=== PATIENT | female | born 1945 | race Caucasian/White ===

== ENCOUNTER → 2016-05-14 | Outpatient (CLI) | payer MEDICARE ==
[~2016-05-14] MED LIST: BACTRIM DS 8001 TA1 PO; CARAFATE1 GM PO; CEPHALEXIN500 M1 PO; FAMCICLOVIR500 MG PO; GLIPIZIDE2.5 MG PO; KEFLEX500 MG PO; LISINOPRIL/HCTZ1 TA3 PO; METFORMIN1000 MG PO; NORCO 5-325 TA1 EACH PO; PRILOSEC20 MG PO; SIMVASTATIN40 MG PO; VICODIN1 TAB PO
== END | disposition home or self-care (01) ==
LOC: MAMMO 10:43
DX: Z12.31 Encounter for screening mammogram for malignant neoplasm of breast (principal)

== ENCOUNTER → 2016-07-10 | Outpatient (CLI) | payer MEDICARE | END | disposition home or self-care (01) | LOC: MAMMO 09:24 | DX: R92.8 Other abnormal and inconclusive findings on diagnostic imaging of breast (principal) ==

== ENCOUNTER 2017-09-01 10:44 | Emergency (ER) | payer MEDICARE ==
[~2017-09-01] VITALS: Ht 152.4 cm; Wt 55.3 kg
[2017-09-01 11:47] LABS: BASO % 0.5 % (0.0-1.0); EOS # 0.6 10*3/uL (0.0-0.4); EOS % 6.6 % (1.0-4.0); HEMATOCRIT 31.8 % (37.0-47.0); HEMOGLOBIN 9.8 g/dl (12.0-16.0); LYMPH # 1.2 10*3/uL (1.3-4.4); LYMPH % 14.5 % (27.0-41.0); MEAN CELL VOLUME 89.6 fl (81.0-99.0); MEAN CORPUSCULAR HGB 27.6 pg (27.0-31.0); MEAN CORPUSCULAR HGB CONC 30.8 g/dl (33.0-37.0); MEAN PLATELET VOLUME 11.2 fl (9.6-12.3); MONO # 0.6 10*3/uL (0.1-1.0); MONO % 6.5 % (3.0-9.0); NEUT % 71.3 % (47.0-73.0); PLATELET COUNT AUTOMATED 169 10*3/uL (130-400); RED BLOOD COUNT 3.55 10*6/uL (4.10-5.10); RED CELL DISTRI WIDTH 15.5 % (0-14.5); WHITE BLOOD COUNT 8.4 10*3/uL (4.8-10.8)
[2017-09-01 11:55] LABS: ACT PARTIAL THROMBO TIME 24.7 SECONDS (20.8-31.5)
[2017-09-01 12:04] LABS: ALBUMIN 3.7 gm/dl (3.1-4.5); BUN 23 mg/dl (7-24); CHLORIDE 107 mmol/L (98-107); LIPASE 174 U/L (73-393); SGOT/AST 14 IU/L (3-35); SGPT/ALT 20 U/L (12-78); SODIUM 141 mmol/L (136-145)
[2017-09-01 12:05] LABS: ALKALINE PHOSPHATASE 43 U/L (45-117); TROPONIN I < 0.015 ng/ml (<0.045)
[2017-09-01 12:09] LABS: BILIRUBIN NEGATIVE (NEGATIVE); BLOOD NEGATIVE (NEGATIVE); CLARITY CLEAR (CLEAR); COLOR YELLOW (YELLOW); GLUCOSE NEGATIVE (NEGATIVE); KETONE NEGATIVE (NEGATIVE); LEUKO ESTERASE TRACE (NEGATIVE); NITRITE NEGATIVE (NEGATIVE); UROBILINOGEN 0.2 E.U./dl (0.2-1.0)
[2017-09-01 12:20] LABS: BACTERIA 1+; MUCOUS 1+
[2017-09-01] MEDS ORDERED: PREDNISONE50 MG PO (14:15)
[2017-09-01] MEDS ORDERED: NORCO 5-325 TA1 EACH PO (14:15)
[2017-09-01 14:16] VITALS: BP 130/82
== END 2017-09-01 15:33 | disposition home or self-care (01) ==
LOC: ED 10:44
PROVIDERS: Emergency Medicine
DX: M10.9 Gout, unspecified (principal); M79.674 Pain in right toe(s); Z90.710 Acquired absence of both cervix and uterus; Z90.89 Acquired absence of other organs; Z98.890 Other specified postprocedural states; Z79.899 Other long term (current) drug therapy; Z88.0 Allergy status to penicillin; Z88.2 Allergy status to sulfonamides

== ENCOUNTER → 2017-09-04 | Outpatient (CLI) | payer MEDICARE ==
[~2017-09-04] MED LIST changes: +PREDNISONE50 MG PO
== END | disposition home or self-care (01) ==
LOC: US 09:09
DX: I12.9 Hypertensive chronic kidney disease with stage 1 through stage 4 chronic kidney disease, or unspecified chronic kidney disease (principal); N18.3 Chronic kidney disease, stage 3 (moderate)

== ENCOUNTER 2018-04-05 19:28 | Emergency (ER) | payer OTHER, MEDICARE ==
[~2018-04-05] VITALS: Ht 152.4 cm; Wt 59.4 kg
[~2018-04-05 19:28] MED LIST changes: +CIPRO500 MG PO; +FLAGYL500 MG PO; +GLUCOPHAGE1000 MG PO; -METFORMIN1000 MG PO; +ZANTAC 7575 M1 PO
[2018-04-05 20:22] VITALS: BP 158/70
== END 2018-04-05 21:05 | disposition home or self-care (01) ==
LOC: ED 19:28
DX: S01.01XA Laceration without foreign body of scalp, initial encounter (principal); Z79.899 Other long term (current) drug therapy; Z88.2 Allergy status to sulfonamides; W20.8XXA Other cause of strike by thrown, projected or falling object, initial encounter; Y93.89 Activity, other specified; Y92.511 Restaurant or cafe as the place of occurrence of the external cause; Y99.8 Other external cause status

== ENCOUNTER → 2018-05-13 | Day surgery (SDC) | payer MEDICARE ==
[~2018-05-13] VITALS: Ht 152.4 cm; Wt 59.4 kg
--- NOTE | ~2018-05-13 | O ---
[place], [place] OPERATIVE NOTE NAME: MEJIA CHANG UNIT #: [id number] ROOM: DOCTOR: FARHAD MICHAELS MD BIRTHDATE: [birth year] DOS: 05/13/2018 GASTROENDOSCOPIC REPORT INDICATIONS: A 72-year-old patient who was presented with chief complaint of history of diverticulitis, status post antibiotic therapy, complete course and undergoing investigation. ALLERGIES: No known medication. PAST MEDICAL HISTORY: Hypertension, diabetes mellitus, hyperlipidemia. PAST SURGICAL HISTORY: Hysterectomy and hernia repair. Also bladder repair. SOCIAL HISTORY: Nonsmoker, nonalcohol consumer. FAMILY HISTORY: Noncontributory. ALLERGIES: SULFA. PROCEDURE: Today's procedure part of investigation is colonoscopy plus polypectomy. PREMEDICATION: Propofol. SCOPE: Olympus forward-viewing colonoscope 10L video. REPORT: After putting the patient in left lateral position and application of lubricant to the scope, the scope was introduced; thereafter, under direct visualization, advanced through the length of colon without difficulty. Colon mucosa and vascularity was carefully examined. Severe diverticulosis of sigmoid colon particularly was identified. Base of cecum explored, expressed, ileocecal valve was defined. Photographic series from the above was obtained. Scattered diverticulosis extending to the right colon and transverse colon documented. Air was suctioned out back to the rectal pouch. A sessile polypoid lesion with piecemeal polypectomy eradicated. A GI reflexion of the scope reveals hemorrhoidal plexus are within normal limit. Air was suctioned out. The patient was extubated, tolerated the procedure well. IMPRESSION: Rectal pouch polyp, severe diverticulosis, status post antibiotic therapy for diverticulitis. PLAN AND DISCUSSION: High fiber diet. ACTIVITY: Ad yvan. FOLLOWUP: Routinely with you in office, p.r.n. visit with us in [facility]. I thank you very much indeed for your kind referral. [place], [place] OPERATIVE NOTE NAME: MEJIA CHANG UNIT #: [id number] ROOM: DOCTOR: FARHAD MICHAELS MD BIRTHDATE: [birth year] FARHAD MICHAELS MD CM:OPRECORD:OPERATIVE NOTE 1 CLAUDETTE MICHAELS MD 05/13/18 [id number] interface
[2018-05-13 07:13] VITALS: BP 127/87
[2018-05-13 08:17] VITALS: BP 129/65
[2018-05-13 08:27] VITALS: BP 136/69
[2018-05-13 08:43] VITALS: BP 141/74
== END | disposition home or self-care (01) ==
LOC: SDC 05-08 09:30
DX: K63.5 Polyp of colon (principal); K57.30 Diverticulosis of large intestine without perforation or abscess without bleeding; I10 Essential (primary) hypertension; E11.9 Type 2 diabetes mellitus without complications; E78.5 Hyperlipidemia, unspecified; K21.9 Gastro-esophageal reflux disease without esophagitis; Z90.710 Acquired absence of both cervix and uterus; Z98.890 Other specified postprocedural states; Z88.2 Allergy status to sulfonamides; Z79.899 Other long term (current) drug therapy

== ENCOUNTER → 2018-06-18 | Outpatient (CLI) | payer MEDICARE | END | disposition home or self-care (01) | LOC: MAMMO 10:40 → RAD 12:48 | DX: Z12.31 Encounter for screening mammogram for malignant neoplasm of breast (principal); M81.0 Age-related osteoporosis without current pathological fracture; M19.90 Unspecified osteoarthritis, unspecified site; I10 Essential (primary) hypertension; Z78.0 Asymptomatic menopausal state; Z90.710 Acquired absence of both cervix and uterus ==

== ENCOUNTER → 2018-12-10 | Outpatient (CLI) | payer MEDICARE ==
[2018-12-10 10:40] LABS: BUN 16 mg/dl (7-24); CHLORIDE 105 mmol/L (98-107); CHOLESTEROL 156 mg/dL (<200); CREATININE 0.92 mg/dL (0.55-1.02); HDL CHOLESTEROL 38 mg/dl (40-60); LDL CHOLESTEROL 66 mg/dL (9-159); SODIUM 139 mmol/L (136-145); TRIGLYCERIDES 261 mg/dl (<150); VLDL CHOLESTEROL 52 mg/dL (6-40)
== END | disposition home or self-care (01) ==
LOC: LAB 09:56
PROVIDERS: Family Medicine
DX: E11.9 Type 2 diabetes mellitus without complications (principal); E78.2 Mixed hyperlipidemia; I10 Essential (primary) hypertension

== ENCOUNTER → 2019-03-19 | Outpatient (CLI) | payer MEDICARE ==
[2019-03-19 10:51] LABS: BUN 21 mg/dl (7-24); CHLORIDE 107 mmol/L (98-107); CREATININE 0.99 mg/dL (0.55-1.02); SODIUM 138 mmol/L (136-145)
== END | disposition home or self-care (01) ==
LOC: LAB 09:54
PROVIDERS: Family Medicine
DX: E11.9 Type 2 diabetes mellitus without complications (principal); I10 Essential (primary) hypertension; E78.00 Pure hypercholesterolemia, unspecified

== ENCOUNTER 2020-04-29 07:06 | Emergency (ER) | payer MEDICARE ==
[~2020-04-29] VITALS: Wt 59.4 kg
[2020-04-29 07:17] VITALS: BP 166/77
[2020-04-29] MEDS ORDERED: MITIGARE0.6 MG PO (07:46)
[2020-04-29 08:00] LABS: BUN 14 mg/dl (7-24); CHLORIDE 106 mmol/L (98-107); CREATININE 0.84 mg/dL (0.55-1.02); POTASSIUM 3.7 mmol/L (3.5-5.1); SODIUM 140 mmol/L (136-145); URIC ACID 6.7 mg/dL (2.6-6.0)
[2020-05-22] MEDS ORDERED: HYDROCODONE-AC1 EAC1 PO (12:01)
[2020-05-22] MEDS ORDERED: PREDNISONE50 MG PO (12:01)
== END 2020-04-29 07:57 | disposition home or self-care (01) ==
LOC: ED 07:06
PROVIDERS: Emergency Medicine
DX: M10.071 Idiopathic gout, right ankle and foot (principal); B35.1 Tinea unguium; E11.9 Type 2 diabetes mellitus without complications; K21.9 Gastro-esophageal reflux disease without esophagitis; E78.5 Hyperlipidemia, unspecified; I10 Essential (primary) hypertension; Z88.2 Allergy status to sulfonamides; Z79.899 Other long term (current) drug therapy; Z90.711 Acquired absence of uterus with remaining cervical stump

== ENCOUNTER 2020-11-25 14:55 | Inpatient (IN) | payer MEDICARE ==
[2020-11-25] VITALS (11 sets, daily range): BP systolic 120–188; BP diastolic 77–101
[~2020-11-25] VITALS: Ht 157.4 cm; Wt 54.4 kg
[~2020-11-25 14:55] MED LIST changes: +HYDROCODONE-AC1 EAC1 PO; +MITIGARE0.6 MG PO
[2020-11-25 15:33] LABS: BASO % 0.3 % (0.0-1.0); EOS % 0.1 % (1.0-4.0); HEMATOCRIT 41.3 % (37.0-47.0); LYMPH # 0.5 10*3/uL (1.3-4.4); LYMPH % 7.2 % (27.0-41.0); MEAN CELL VOLUME 87.5 fl (81.0-99.0); MEAN CORPUSCULAR HGB 27.3 pg (27.0-31.0); MEAN CORPUSCULAR HGB CONC 31.2 g/dl (33.0-37.0); MEAN PLATELET VOLUME 11.3 fl (9.6-12.3); MONO # 0.6 10*3/uL (0.1-1.0); MONO % 8.5 % (3.0-9.0); NEUT # 6.2 10*3/uL (2.3-7.9); NEUT % 83.6 % (47.0-73.0); PLATELET COUNT AUTOMATED 203 10*3/uL (130-400); RED BLOOD COUNT 4.72 10*6/uL (4.10-5.10); WHITE BLOOD COUNT 7.4 10*3/uL (4.8-10.8)
[2020-11-25 15:51] LABS: ALBUMIN 4.4 gm/dl (3.1-4.5); ALKALINE PHOSPHATASE 101 U/L (45-117); BUN 33 mg/dl (7-24); CHLORIDE 104 mmol/L (98-107); CREATININE 1.88 mg/dL (0.55-1.02); SGOT/AST 43 IU/L (3-35); SGPT/ALT 28 U/L (12-78); SODIUM 135 mmol/L (136-145); TOTAL PROTEIN 8.3 gm/dL (6.4-8.2)
[2020-11-25 15:52] LABS: TROPONIN I < 0.015 ng/ml (<0.045)
[2020-11-25] MEDS ORDERED: PIOGLITAZONE HC30 MG PO (20:54)
[2020-11-25] MEDS ORDERED: LISINOPRIL10 M1 PO (20:55)
[2020-11-25] MEDS ORDERED: GLIMEPIRIDE4 M1 PO (20:55)
[2020-11-25] MEDS ORDERED: PANTOPRAZOLE SO40 MG PO (20:58)
[2020-11-25] MEDS ORDERED: ATORVASTATIN CA80 M1 PO (20:58)
[2020-11-25] MEDS ORDERED: METFORMIN HYD1000 MG PO (20:59)
[2020-11-25] MEDS ORDERED: COLCHICINE0.6 M2 PO (21:01)
[2020-11-26] VITALS (10 sets, daily range): BP systolic 134–155; BP diastolic 80–93
[2020-11-26 01:28] LABS: BILIRUBIN Negative (Negative); BLOOD 1+ (Negative); CLARITY Cloudy (Clear); COLOR Yellow (Yellow); GLUCOSE Trace (Negative); KETONE Trace (Negative); LEUKO ESTERASE 1+ (Negative); NITRITE Negative (Negative); SPECIFIC GRAVITY 1.015 (1.001-1.030); UROBILINOGEN 0.2 E.U./dl (0.0-1.0)
[2020-11-26 01:29] LABS: BACTERIA 4+; RBC 16-20 rbc/hpf (0-2); WBC 21-30 wbc/hpf (0-5)
[2020-11-26 06:13] LABS: BASO % 0.5 % (0.0-1.0); EOS # 0.1 10*3/uL (0.0-0.4); EOS % 0.8 % (1.0-4.0); HEMATOCRIT 33.9 % (37.0-47.0); LYMPH % 15.9 % (27.0-41.0); MEAN CELL VOLUME 86.5 fl (81.0-99.0); MEAN CORPUSCULAR HGB 26.8 pg (27.0-31.0); MEAN PLATELET VOLUME 12.1 fl (9.6-12.3); MONO # 0.8 10*3/uL (0.1-1.0); MONO % 11.9 % (3.0-9.0); NEUT # 4.5 10*3/uL (2.3-7.9); NEUT % 70.6 % (47.0-73.0); PLATELET COUNT AUTOMATED 191 10*3/uL (130-400); RED BLOOD COUNT 3.92 10*6/uL (4.10-5.10); RED CELL DISTRI WIDTH 14.3 % (0-14.5); WHITE BLOOD COUNT 6.4 10*3/uL (4.8-10.8)
[2020-11-26 06:33] LABS: POTASSIUM 3.8 mmol/L (3.5-5.1)
[2020-11-26 06:58] LABS: ALBUMIN 3.4 gm/dl (3.1-4.5); CREATININE 1.36 mg/dL (0.55-1.02); FREE T4 1.09 ng/dl (0.76-1.46); THYROID STIM HORMONE (HS) 0.245 uIU/ml (0.358-4.75); TOTAL PROTEIN 6.6 gm/dL (6.4-8.2)
[2020-11-27] VITALS: BP 146/93
[2020-11-27 06:19] LABS: BASO % 0.5 % (0.0-1.0); EOS # 0.1 10*3/uL (0.0-0.4); EOS % 1.6 % (1.0-4.0); LYMPH # 1.4 10*3/uL (1.3-4.4); LYMPH % 25.5 % (27.0-41.0); MEAN CORPUSCULAR HGB 26.8 pg (27.0-31.0); MEAN CORPUSCULAR HGB CONC 31.1 g/dl (33.0-37.0); MEAN PLATELET VOLUME 11.9 fl (9.6-12.3); MONO # 0.6 10*3/uL (0.1-1.0); NEUT # 3.5 10*3/uL (2.3-7.9); PLATELET COUNT AUTOMATED 160 10*3/uL (130-400); RED BLOOD COUNT 4.07 10*6/uL (4.10-5.10); RED CELL DISTRI WIDTH 14.3 % (0-14.5); WHITE BLOOD COUNT 5.7 10*3/uL (4.8-10.8)
[2020-11-27 06:43] LABS: CHLORIDE 107 mmol/L (98-107); CREATININE 0.96 mg/dL (0.55-1.02); POTASSIUM 3.9 mmol/L (3.5-5.1); SODIUM 138 mmol/L (136-145)
[2020-11-27 06:49] LABS: BUN 19 mg/dl (7-24)
[2020-11-27 08:00] VITALS: BP 167/92
[2020-11-27] MEDS ORDERED: LISINOPRIL20 MG PO (13:58)
== END 2020-11-27 15:09 | disposition home health service (06) | DRG 304 ==
LOC: ED 14:55 → EDHOLD 17:32
PROVIDERS: Internal Medicine; Physician Assistant; ADMIT Internal Medicine; ATTEND Internal Medicine
DX: I16.1 Hypertensive emergency (principal); N17.0 Acute kidney failure with tubular necrosis; E87.1 Hypo-osmolality and hyponatremia; N39.0 Urinary tract infection, site not specified; E11.649 Type 2 diabetes mellitus with hypoglycemia without coma; Z20.822 Contact with and (suspected) exposure to COVID-19; K21.9 Gastro-esophageal reflux disease without esophagitis; E78.5 Hyperlipidemia, unspecified; I10 Essential (primary) hypertension; E11.65 Type 2 diabetes mellitus with hyperglycemia; M1A.9XX0 Chronic gout, unspecified, without tophus (tophi); Z88.2 Allergy status to sulfonamides; Z79.899 Other long term (current) drug therapy; Z90.710 Acquired absence of both cervix and uterus

== ENCOUNTER 2020-12-26 11:56 | Inpatient (IN) | payer MEDICARE ==
[~2020-12-26] VITALS: Ht 152.4 cm; Wt 43.7 kg
[~2020-12-26 11:56] MED LIST changes: +ATORVASTATIN CA80 M1 PO; +COLCHICINE0.6 M2 PO; +GLIMEPIRIDE4 M1 PO; +LISINOPRIL10 M1 PO; +LISINOPRIL20 MG PO; +METFORMIN HYD1000 MG PO; +PANTOPRAZOLE SO40 MG PO; +PIOGLITAZONE HC30 MG PO
[2020-12-26 12:01] VITALS: BP 145/78
[2020-12-26 14:06] LABS: BILIRUBIN Negative (Negative); BLOOD Trace-Lysed (Negative); CLARITY Clear (Clear); COLOR Yellow (Yellow); GLUCOSE Negative (Negative); KETONE Trace (Negative); LEUKO ESTERASE 1+ (Negative); NITRITE Negative (Negative); SPECIFIC GRAVITY 1.015 (1.001-1.030); UROBILINOGEN 0.2 E.U./dl (0.0-1.0)
[2020-12-26 14:22] LABS: EPITHELIAL CELLS 31-40
[2020-12-26 14:23] LABS: BACTERIA 1+; URIC ACID CRYSTALS TR
[2020-12-26 14:37] LABS: BASO # 0.1 10*3/uL (0.0-0.1); BASO % 1.1 % (0.0-1.0); EOS % 0.8 % (1.0-4.0); HEMATOCRIT 42.2 % (37.0-47.0); LYMPH % 18.1 % (27.0-41.0); MEAN CELL VOLUME 89.2 fl (81.0-99.0); MEAN CORPUSCULAR HGB 27.5 pg (27.0-31.0); MEAN CORPUSCULAR HGB CONC 30.8 g/dl (33.0-37.0); MONO # 0.3 10*3/uL (0.1-1.0); MONO % 6.2 % (3.0-9.0); NEUT # 3.9 10*3/uL (2.3-7.9); PLATELET COUNT AUTOMATED 134 10*3/uL (130-400); RED BLOOD COUNT 4.73 10*6/uL (4.10-5.10); RED CELL DISTRI WIDTH 15.8 % (0-14.5); WHITE BLOOD COUNT 5.3 10*3/uL (4.8-10.8)
[2020-12-26 14:54] LABS: ACT PARTIAL THROMBO TIME 29.2 SECONDS (20.0-32.1); ALBUMIN 4.3 gm/dl (3.1-4.5); ALKALINE PHOSPHATASE 57 U/L (45-117); BUN 55 mg/dl (7-24); CHLORIDE 107 mmol/L (98-107); CREATININE 2.16 mg/dL (0.55-1.02); INTERNATIONAL NORM RATIO 1.2 (2.0-3.5); LIPASE 645 U/L (73-393); POTASSIUM 5.3 mmol/L (3.5-5.1); SGOT/AST 11 IU/L (3-35); SGPT/ALT 16 U/L (12-78); SODIUM 133 mmol/L (136-145); TOTAL PROTEIN 7.7 gm/dL (6.4-8.2)
[2020-12-26 14:57] LABS: TROPONIN I < 0.015 ng/ml (<0.045)
[2020-12-26 18:15] VITALS: BP 149/80
[2020-12-26] MEDS ORDERED: ZOFRAN4 MG PO (18:55)
[2020-12-26 20:00] VITALS: BP 138/82
[2020-12-27] VITALS: BP 136/84
[2020-12-27 06:32] LABS: BASO % 0.7 % (0.0-1.0); EOS # 0.1 10*3/uL (0.0-0.4); EOS % 1.1 % (1.0-4.0); LYMPH # 0.9 10*3/uL (1.3-4.4); LYMPH % 20.9 % (27.0-41.0); MEAN CELL VOLUME 88.2 fl (81.0-99.0); MEAN CORPUSCULAR HGB 27.3 pg (27.0-31.0); MEAN CORPUSCULAR HGB CONC 30.9 g/dl (33.0-37.0); MEAN PLATELET VOLUME 12.8 fl (9.6-12.3); MONO # 0.3 10*3/uL (0.1-1.0); NEUT # 3.1 10*3/uL (2.3-7.9); NEUT % 69.6 % (47.0-73.0); PLATELET COUNT AUTOMATED 104 10*3/uL (130-400); RED BLOOD COUNT 3.74 10*6/uL (4.10-5.10); RED CELL DISTRI WIDTH 15.7 % (0-14.5); WHITE BLOOD COUNT 4.5 10*3/uL (4.8-10.8)
[2020-12-27 06:34] LABS: ALBUMIN 3.3 gm/dl (3.1-4.5); CREATININE 1.67 mg/dL (0.55-1.02); FREE T4 0.95 ng/dl (0.76-1.46); POTASSIUM 5.1 mmol/L (3.5-5.1); TOTAL PROTEIN 6.1 gm/dL (6.4-8.2)
[2020-12-27 06:38] LABS: THYROID STIM HORMONE (HS) 0.413 uIU/ml (0.358-4.75)
[2020-12-27 08:00] VITALS: BP 125/74
[2020-12-27 12:00] VITALS: BP 114/69
[2020-12-27 16:00] VITALS: BP 134/78
[2020-12-27 20:00] VITALS: BP 121/78
[2020-12-28] VITALS: BP 126/85
[2020-12-28 06:44] LABS: BASO % 0.8 % (0.0-1.0); HEMATOCRIT 31.1 % (37.0-47.0); LYMPH # 0.8 10*3/uL (1.3-4.4); MEAN CELL VOLUME 87.9 fl (81.0-99.0); MEAN CORPUSCULAR HGB 27.4 pg (27.0-31.0); MEAN CORPUSCULAR HGB CONC 31.2 g/dl (33.0-37.0); MEAN PLATELET VOLUME 12.9 fl (9.6-12.3); MONO # 0.3 10*3/uL (0.1-1.0); MONO % 7.3 % (3.0-9.0); NEUT # 2.6 10*3/uL (2.3-7.9); NEUT % 68.6 % (47.0-73.0); PLATELET COUNT AUTOMATED 88 10*3/uL (130-400); RED BLOOD COUNT 3.54 10*6/uL (4.10-5.10); RED CELL DISTRI WIDTH 15.5 % (0-14.5); WHITE BLOOD COUNT 3.8 10*3/uL (4.8-10.8)
[2020-12-28 07:04] LABS: POTASSIUM 4.7 mmol/L (3.5-5.1)
[2020-12-28 07:05] LABS: CREATININE 1.33 mg/dL (0.55-1.02)
[2020-12-28 08:00] VITALS: BP 150/82
[2020-12-28 12:00] VITALS: BP 128/74
[2020-12-28 16:00] VITALS: BP 130/71
== END 2020-12-28 18:45 | disposition home or self-care (01) | DRG 808 ==
LOC: ED 11:56 → 4E 16:13 → EDHOLD 16:13 → 4E 17:52
PROVIDERS: Family Medicine; Physician Assistant; Student in an Organized Health Care Education/Training Program; ADMIT Internal Medicine; ATTEND Internal Medicine
DX: D61.818 Other pancytopenia (principal); N17.0 Acute kidney failure with tubular necrosis; E87.1 Hypo-osmolality and hyponatremia; N39.0 Urinary tract infection, site not specified; R82.71 Bacteriuria; K76.0 Fatty (change of) liver, not elsewhere classified; Z20.822 Contact with and (suspected) exposure to COVID-19; K57.90 Diverticulosis of intestine, part unspecified, without perforation or abscess without bleeding; K44.9 Diaphragmatic hernia without obstruction or gangrene; D69.6 Thrombocytopenia, unspecified; K21.9 Gastro-esophageal reflux disease without esophagitis; E78.5 Hyperlipidemia, unspecified; E11.65 Type 2 diabetes mellitus with hyperglycemia; E55.9 Vitamin D deficiency, unspecified; E86.0 Dehydration; K74.60 Unspecified cirrhosis of liver; I12.9 Hypertensive chronic kidney disease with stage 1 through stage 4 chronic kidney disease, or unspecified chronic kidney disease; N18.9 Chronic kidney disease, unspecified; Z88.2 Allergy status to sulfonamides; Z79.899 Other long term (current) drug therapy; Z90.710 Acquired absence of both cervix and uterus

== ENCOUNTER → 2021-01-16 | Outpatient (CLI) | payer MEDICARE ==
[~2021-01-16] MED LIST changes: +AUGMENTIN 875875 MG PO; +ZOFRAN4 MG PO
== END | disposition home or self-care (01) ==
LOC: US 14:27
PROVIDERS: ATTEND Physician Assistant
DX: R22.0 Localized swelling, mass and lump, head (principal)

== ENCOUNTER 2021-01-23 11:38 | Inpatient (IN) | payer MEDICARE ==
[~2021-01-23] VITALS: Ht 157.4 cm; Wt 42.3 kg
[~2021-01-23 11:38] MED LIST changes: -AUGMENTIN 875875 MG PO
[2021-01-23 11:46] VITALS: BP 103/40
[2021-01-23 12:51] LABS: HEMATOCRIT 47.3 % (37.0-47.0); MEAN CORPUSCULAR HGB 27.3 pg (27.0-31.0); MEAN CORPUSCULAR HGB CONC 31.7 g/dl (33.0-37.0); MEAN PLATELET VOLUME 11.4 fl (9.6-12.3); PLATELET COUNT AUTOMATED 301 10*3/uL (130-400); RED CELL DISTRI WIDTH 16.6 % (0-14.5); WHITE BLOOD COUNT 14.7 10*3/uL (4.8-10.8)
[2021-01-23 13:02] LABS: ALBUMIN 3.2 gm/dl (3.1-4.5); CREATININE 1.36 mg/dL (0.55-1.02); POTASSIUM 4.5 mmol/L (3.5-5.1); TOTAL PROTEIN 7.4 gm/dL (6.4-8.2)
[2021-01-23 13:09] LABS: TOTAL CELLS COUNTED 100 #CELLS
[2021-01-23 13:10] LABS: BURR CELLS FEW; OVALOCYTES FEW; PLATELET SUFFICIENCY NORMAL (NORMAL); SCHISTOCYTES FEW
[2021-01-23 13:23] LABS: BILIRUBIN Negative (Negative); BLOOD Negative (Negative); CLARITY Turbid (Clear); COLOR Yellow (Yellow); GLUCOSE Negative (Negative); KETONE 1+ (Negative); LEUKO ESTERASE Negative (Negative); NITRITE Negative (Negative); SPECIFIC GRAVITY 1.025 (1.001-1.030); UROBILINOGEN 0.2 E.U./dl (0.0-1.0)
[2021-01-23 13:58] LABS: ACT PARTIAL THROMBO TIME 27.7 SECONDS (20.0-32.1); INTERNATIONAL NORM RATIO 1.2 (2.0-3.5)
[2021-01-23 14:06] LABS: URIC ACID CRYSTALS 3+
[2021-01-23 14:07] LABS: BACTERIA 2+
[2021-01-23 14:19] VITALS: BP 102/54
[2021-01-23 16:20] VITALS: BP 102/54
[2021-01-23] MEDS ORDERED: AUGMENTIN 875875 MG PO (17:00)
[2021-01-24] VITALS (10 sets, daily range): BP systolic 96–114; BP diastolic 42–78
[2021-01-24 06:47] LABS: BUN 50 mg/dl (7-24); CHLORIDE 108 mmol/L (98-107); POTASSIUM 4.2 mmol/L (3.5-5.1); SODIUM 137 mmol/L (136-145)
[2021-01-24 06:49] LABS: CREATININE 0.96 mg/dL (0.55-1.02)
[2021-01-24 07:00] LABS: BASO % 0.3 % (0.0-1.0); EOS % 0.2 % (1.0-4.0); HEMATOCRIT 34.1 % (37.0-47.0); LYMPH # 0.8 10*3/uL (1.3-4.4); MEAN CELL VOLUME 86.5 fl (81.0-99.0); MEAN CORPUSCULAR HGB 27.7 pg (27.0-31.0); MEAN PLATELET VOLUME 11.8 fl (9.6-12.3); MONO # 0.6 10*3/uL (0.1-1.0); MONO % 5.3 % (3.0-9.0); NEUT # 9.8 10*3/uL (2.3-7.9); NEUT % 85.1 % (47.0-73.0); RED BLOOD COUNT 3.94 10*6/uL (4.10-5.10); RED CELL DISTRI WIDTH 16.3 % (0-14.5); WHITE BLOOD COUNT 11.5 10*3/uL (4.8-10.8)
[2021-01-24 07:06] LABS: PLATELET COUNT AUTOMATED 181 10*3/uL (130-400)
[2021-01-25 06:34] LABS: BASO % 0.1 % (0.0-1.0); EOS % 0.1 % (1.0-4.0); HEMATOCRIT 31.8 % (37.0-47.0); LYMPH # 0.5 10*3/uL (1.3-4.4); LYMPH % 7.2 % (27.0-41.0); MEAN CELL VOLUME 87.1 fl (81.0-99.0); MEAN CORPUSCULAR HGB 27.4 pg (27.0-31.0); MEAN CORPUSCULAR HGB CONC 31.4 g/dl (33.0-37.0); MEAN PLATELET VOLUME 11.4 fl (9.6-12.3); MONO # 0.4 10*3/uL (0.1-1.0); MONO % 5.9 % (3.0-9.0); NEUT # 6.3 10*3/uL (2.3-7.9); NEUT % 84.7 % (47.0-73.0); PLATELET COUNT AUTOMATED 158 10*3/uL (130-400); RED BLOOD COUNT 3.65 10*6/uL (4.10-5.10); RED CELL DISTRI WIDTH 16.4 % (0-14.5); WHITE BLOOD COUNT 7.5 10*3/uL (4.8-10.8)
[2021-01-25 06:46] LABS: CHLORIDE 110 mmol/L (98-107); CREATININE 0.84 mg/dL (0.55-1.02); POTASSIUM 3.5 mmol/L (3.5-5.1); SODIUM 140 mmol/L (136-145)
[2021-01-25 06:54] LABS: BUN 37 mg/dl (7-24)
[2021-01-25 08:00] VITALS: BP 113/62
[2021-01-25 12:00] VITALS: BP 122/54
[2021-01-25 15:30] VITALS: BP 105/56
[2021-01-25 20:00] VITALS: BP 124/70
[2021-01-26] VITALS: BP 123/68
[2021-01-26 06:23] LABS: BASO % 0.2 % (0.0-1.0); EOS % 0.2 % (1.0-4.0); HEMATOCRIT 30.9 % (37.0-47.0); LYMPH # 0.5 10*3/uL (1.3-4.4); LYMPH % 7.9 % (27.0-41.0); MEAN CELL VOLUME 87.8 fl (81.0-99.0); MEAN CORPUSCULAR HGB 27.6 pg (27.0-31.0); MEAN CORPUSCULAR HGB CONC 31.4 g/dl (33.0-37.0); MEAN PLATELET VOLUME 11.5 fl (9.6-12.3); MONO # 0.4 10*3/uL (0.1-1.0); MONO % 6.4 % (3.0-9.0); NEUT # 5.4 10*3/uL (2.3-7.9); NEUT % 83.3 % (47.0-73.0); PLATELET COUNT AUTOMATED 146 10*3/uL (130-400); RED BLOOD COUNT 3.52 10*6/uL (4.10-5.10); RED CELL DISTRI WIDTH 16.6 % (0-14.5); WHITE BLOOD COUNT 6.4 10*3/uL (4.8-10.8)
[2021-01-26 06:32] LABS: BUN 30 mg/dl (7-24); CHLORIDE 109 mmol/L (98-107); CREATININE 0.86 mg/dL (0.55-1.02); POTASSIUM 3.3 mmol/L (3.5-5.1); SODIUM 137 mmol/L (136-145)
[2021-01-26 08:00] VITALS: BP 109/65
[2021-01-26] MEDS ORDERED: AUGMENTIN 875875 MG PO (12:59)
== END 2021-01-26 14:47 | DRG 871 ==
LOC: ED 11:38 → EDHOLD 14:56 → 4E 14:56
PROVIDERS: Emergency Medicine; Internal Medicine; ADMIT Internal Medicine; ATTEND Internal Medicine
DX: A41.9 Sepsis, unspecified organism (principal); N17.0 Acute kidney failure with tubular necrosis; E87.1 Hypo-osmolality and hyponatremia; Z68.1 Body mass index [BMI] 19.9 or less, adult; I24.8 Other forms of acute ischemic heart disease; K11.20 Sialoadenitis, unspecified; E86.0 Dehydration; K21.9 Gastro-esophageal reflux disease without esophagitis; R62.7 Adult failure to thrive; D64.9 Anemia, unspecified; E11.65 Type 2 diabetes mellitus with hyperglycemia; Z20.822 Contact with and (suspected) exposure to COVID-19; R26.2 Difficulty in walking, not elsewhere classified; E78.2 Mixed hyperlipidemia; E11.22 Type 2 diabetes mellitus with diabetic chronic kidney disease; M1A.9XX0 Chronic gout, unspecified, without tophus (tophi); N18.9 Chronic kidney disease, unspecified; I12.9 Hypertensive chronic kidney disease with stage 1 through stage 4 chronic kidney disease, or unspecified chronic kidney disease; Z88.2 Allergy status to sulfonamides; Z79.899 Other long term (current) drug therapy; Z79.84 Long term (current) use of oral hypoglycemic drugs

== ENCOUNTER 2021-05-08 06:19 | Inpatient (IN) | payer MEDICARE ==
[~2021-05-08] VITALS: Ht 152.4 cm; Wt 36.5 kg
[2021-05-08] VITALS (8 sets, daily range): BP systolic 83–130; BP diastolic 54–90
[~2021-05-08 06:19] MED LIST changes: +AUGMENTIN 875875 MG PO
[2021-05-08 06:51] LABS: HEMATOCRIT 38.7 % (37.0-47.0); MEAN CELL VOLUME 102.9 fl (81.0-99.0); MEAN CORPUSCULAR HGB 30.6 pg (27.0-31.0); MEAN CORPUSCULAR HGB CONC 29.7 g/dl (33.0-37.0); MEAN PLATELET VOLUME 10.7 fl (9.6-12.3); PLATELET COUNT AUTOMATED 328 10*3/uL (130-400); RED BLOOD COUNT 3.76 10*6/uL (4.10-5.10); RED CELL DISTRI WIDTH 16.7 % (0-14.5); WHITE BLOOD COUNT 17.9 10*3/uL (4.8-10.8)
[2021-05-08 06:52] LABS: MANUAL DIFF REFLEX YES
[2021-05-08 07:09] LABS: ALKALINE PHOSPHATASE 47 U/L (45-117); BUN 74 mg/dl (7-24); CHLORIDE 109 mmol/L (98-107); CREATININE 4.32 mg/dL (0.55-1.02); SGOT/AST 10 IU/L (3-35); SGPT/ALT 16 U/L (12-78); SODIUM 134 mmol/L (136-145)
[2021-05-08 07:10] LABS: TOTAL PROTEIN 6.8 gm/dL (6.4-8.2)
[2021-05-08 07:12] LABS: BURR CELLS FEW; OVALOCYTES FEW; PLATELET SUFFICIENCY NORMAL (NORMAL); POLYCHROMASIA SLIGHT; TOTAL CELLS COUNTED 100 #CELLS
[2021-05-08 07:36] LABS: POTASSIUM 8.7 mmol/L (3.5-5.1)
[2021-05-08 09:24] LABS: CREATININE 3.84 mg/dL (0.55-1.02)
[2021-05-08 09:37] LABS: POTASSIUM 7.8 mmol/L (3.5-5.1)
[2021-05-08 09:46] LABS: ARTERIAL BLOOD GAS PO2 223.5 (80-90)
[2021-05-08 09:48] LABS: ABG BASE EXCESS -25.4 mmol/L (-2.0-2.0)
[2021-05-08 10:10] LABS: ARTERIAL BLOOD GAS PH 7.016 (7.35-7.45)
[2021-05-08 11:18] LABS: BILIRUBIN Negative (Negative); BLOOD 2+ (Negative); CLARITY Turbid (Clear); COLOR Yellow (Yellow); GLUCOSE Negative (Negative); KETONE Trace (Negative); LEUKO ESTERASE 3+ (Negative); NITRITE Negative (Negative); PH 5.5 (4.5-8.0); SPECIFIC GRAVITY 1.015 (1.001-1.030); UROBILINOGEN 0.2 E.U./dl (0.0-1.0)
[2021-05-08 11:32] LABS: WBC TNTC wbc/hpf (0-5)
[2021-05-08 11:45] LABS: CREATININE 3.88 mg/dL (0.55-1.02)
[2021-05-08 11:54] LABS: POTASSIUM 7.6 mmol/L (3.5-5.1)
[2021-05-08 14:02] LABS: FREE T4 0.78 ng/dl (0.76-1.46)
[2021-05-08 14:07] LABS: THYROID STIM HORMONE (HS) 1.95 uIU/ml (0.358-4.75)
== END 2021-05-08 14:43 | disposition short-term general hospital (02) | DRG 871 ==
LOC: ED 06:19 → ICCU 07:57 → EDHOLD 07:57 → ICCU 08:17
PROVIDERS: Emergency Medicine; Internal Medicine; ADMIT Student in an Organized Health Care Education/Training Program; ATTEND Student in an Organized Health Care Education/Training Program
DX: A41.9 Sepsis, unspecified organism (principal); E11.10 Type 2 diabetes mellitus with ketoacidosis without coma; N17.0 Acute kidney failure with tubular necrosis; N39.0 Urinary tract infection, site not specified; E44.1 Mild protein-calorie malnutrition; Z68.1 Body mass index [BMI] 19.9 or less, adult; E86.0 Dehydration; Z88.2 Allergy status to sulfonamides; R65.20 Severe sepsis without septic shock; E83.41 Hypermagnesemia; E78.5 Hyperlipidemia, unspecified; D53.9 Nutritional anemia, unspecified; K21.9 Gastro-esophageal reflux disease without esophagitis; I10 Essential (primary) hypertension; M10.9 Gout, unspecified; R31.9 Hematuria, unspecified; E87.5 Hyperkalemia; Z90.710 Acquired absence of both cervix and uterus; Z79.899 Other long term (current) drug therapy